=== PATIENT | female | born 1975 | race Caucasian/White ===

== ENCOUNTER → 2016-08-09 | Outpatient (CLI) | payer MEDICARE, MEDICAID ==
[~2016-08-09] MED LIST: ACET1TAB12 PO; ALPR1TAB2 PO; BACL10TA PO; CEFD300C3 PO; CEPH500C PO; CITALOPRAM; CLON1TAB2 PO; CLON1TAB27 PO; CPR500T PO; CRS350T PO; CYCL10TA9 PO; DCS100C PO; DIAZ10TA3 PO; DIAZ5TAB49; DIPH25CA79 PO; ESCI20TA2 PO; ESCT10T; FERR-57 PO; FLC150T PO; FLUO20CA25 PO; FLUO40CA PO; FRSM40T PO; FURO-125 PO; GABA600T2 PO; GBPN300C PO; HYDR-229 PO; HYDR-623 PO; HYDR-690; HYDR-690 PO; HYDR1CAP2 PO; HYDR1TAB8 PO; HYDR1TAB86 PO; IBP800T; IBP800T PO; IBUP-1780 PO; IBUP400T22 PO; METH4TAB PO; MORP15TA PO; NAPR-243 PO; ORPH100T PO; OXYC-12; OXYC-272 PO; OXYC-281 PO; PHEN-640 PO; PNV1CAPS13 PO; POTA10CA43 PO; PRED10TA22 PO; PROM25TA14 PO; RT-ALBUINH IH; SULF1TAB35 PO; TPR100T PO; TRIA1CAP4 PO; TRM50T PO; VENL75TA6 PO; [UNRECOGNIZED DRUG - OTHER]; [UNRECOGNIZED DRUG - OTHER] PO
[2016-08-09 13:20] LABS: BASOPHILS % (AUTO) 0 % (0-10); EOSINOPHILS # (AUTO) 0.2 10^3/uL (0.0-0.3); EOSINOPHILS % (AUTO) 3 % (0-10); LYMPHOCYTES # (AUTO) 1.8 X 10^3 (1.0-4.0); LYMPHOCYTES % (AUTO) 33 % (12-44); MEAN CORPUSCULAR HEMOGLOBIN 32 PG (25-34); MEAN CORPUSCULAR HGB CONC 32 G/DL (32-36); MEAN CORPUSCULAR VOLUME 101 FL (80-99); MEAN PLATELET VOLUME 9.7 FL (7.4-10.4); MONOCYTES # (AUTO) 0.3 X 10^3 (0.0-1.0); MONOCYTES % (AUTO) 5 % (0-12); NEUTROPHILS # (AUTO) 3.2 X 10^3 (1.8-7.8); NEUTROPHILS % (AUTO) 59 % (42-75); PLATELET COUNT 227 10^3/uL (130-400); RED BLOOD COUNT 3.67 10^6/uL (4.35-5.85); RED CELL DISTRIBUTION WIDTH 13.6 % (10.0-14.5); WHITE BLOOD COUNT 5.5 10^3/uL (4.3-11.0)
[2016-08-09 13:43] LABS: ALANINE AMINOTRANSFERASE 18 U/L (0-55); ALBUMIN 3.8 G/DL (3.2-4.5); ANION GAP 5 MMOL/L (5-14); ASPARTATE AMINO TRANSFERASE 21 U/L (5-34); BILIRUBIN,TOTAL 0.2 MG/DL (0.1-1.0); BLOOD UREA NITROGEN 14 MG/DL (7-18); BUN/CREATININE RATIO 17; CALCIUM 8.7 MG/DL (8.5-10.1); CARBON DIOXIDE 22 MMOL/L (21-32); CHLORIDE 111 MMOL/L (98-107); CREATININE SERUM 0.83 MG/DL (0.60-1.30); GFR ESTIMATED > 60; GLUCOSE 86 MG/DL (70-105); POTASSIUM 4.2 MMOL/L (3.6-5.0); SODIUM 138 MMOL/L (135-145); TOTAL PROTEIN 7.3 G/DL (6.4-8.2)
[2016-08-09 14:04] LABS: THYROID STIMULATING HORMONE 0.96 UIU/ML (0.35-4.94)
== END ==
LOC: LAB 12:50
PROVIDERS: ATTEND Obstetrics & Gynecology
DX: R60.0 Localized edema (principal); E55.9 Vitamin D deficiency, unspecified; F41.1 Generalized anxiety disorder
CPT/HCPCS: 36415; 80053; 84439; 84443; 85025

== ENCOUNTER 2016-09-26 21:39 | Emergency (ER) | payer MEDICARE, MEDICAID ==
[~2016-09-26] VITALS: Ht 167.6 cm; Wt 72.6 kg
[2016-09-26] MEDS ORDERED: RX-ALBUTEROL INHALER (PROAIR) 8 GM IH STA (22:13)
[2016-09-26] MEDS ORDERED: predniSONE 20 MG TAB PO ONE (22:15)
[2016-09-26] MEDS ORDERED: AZITHROMYCIN 250 MG TAB (ZITHROMAX) PO SCH (22:15)
--- NOTE | 2016-09-26 22:16 | ED Cough/URI ---
General Chief Complaint: Cough/Cold/Flu Symptoms Stated Complaint: TROUBLE BREATHING Source: patient Exam Limitations: no limitations History of Present Illness Time seen by provider: 22:16 Initial Comments To ER with a one-week history of nasal congestion and rhinorrhea, pressure behind her eyes, productive cough worse at night. Chills. Timing/Duration: week Severity/Quality: productive cough Associated Symptoms: chest pain/soreness, cough Allergies and Home Medications Allergies Coded Allergies: ampicillin (Unverified Allergy, Mild, 07/25/08) Home Medications Albuterol Sulfate 6.7 Gm Hfa.aer.ad, 6.7 GM IH Q4H PRN for COUGH, #1 Ref 0 Prescribed by: ANDREINA ROSS on 02/01/162153 Azithromycin 250 Mg Tablet, 250 MG PO DAILY, #4 Prescribed by: JOSEPH FERNANDES on 09/26/16 2224 Cefdinir 300 Mg Capsule, 300 MG PO BID, #14 Ref 0 Prescribed by: ANDREINA ROSS on 02/01/162153 Diazepam 10 Mg Tablet, 10 MG PO QID PRN for MUSCLE SPASMS, (Reported) Diphenhydramine HCl 25 Mg Capsule, 25 MG PO Q4H PRN for INSOMNIA, #10 Prescribed by: JOSEPH FERNANDES on 08/13/15 1646 Gabapentin 600 Mg Tablet, 600 MG PO DAILY, (Reported) Ibuprofen 800 Mg Tablet, 800 MG PO Q8H PRN for PAIN, (Reported) Oxycodone Hcl/Acetaminophen 1 Tab Tablet, 10 MG PO TID, (Reported) Prednisone 10 Mg Tab.ds.pk, 10 MG PO UD, #1 Ref 0 Prescribed by: ANDREINA ROSS on 02/01/162153 Prednisone 20 Mg Tab, 40 MG PO DAILY, #6 Prescribed by: JOSEPH FERNANDES on 09/26/16 2224 Promethazine HCl 25 Mg Tablet, 25 MG PO Q6H PRN for NAUSEA/VOMITING, (Reported) Topiramate 100 Mg Tab, 100 MG PO BID, (Reported) Tramadol HCl 50 Mg Tablet, #120 (Reported) Constitutional: see HPI, chills EENTM: nose congestion, see HPI Respiratory: see HPI, cough Cardiovascular: no symptoms reported Genitourinary: no symptoms reported Musculoskeletal: no symptoms reported Skin: no symptoms reported Psychiatric/Neurological: No Symptoms Reported Past Pufsbvt-Kgxvld-Zvmpsu Hx Patient Social History Former Smoker/When Quit: Aug 23, 2011 Recent Foreign Travel: No Contact w/Someone Who Travel: No Recent Hopitalizations: No (childbirth) Seasonal Allergies Seasonal Allergies: No Surgeries HX Surgeries: Yes (diag lap, c/s x2, wisdom teeth extraction) Surgeries: Abdominal, Appendectomy, Section, Hysterectomy Respiratory Hx Respiratory Disorders: No Cardiovascular Hx Cardiac Disorders: No Neurological Hx Neurological Disorders: Yes ("SEIZURES" X 2--TX FOR LEXAPRO, CLONAZEPAM AND TOPAMAX AT VARIOUS TIMES) Neurological Disorders: Seizure Disorder Reproductive System Hx Reproductive Disorders: Yes (CHRONIC PELVIC PAIN) Female Reproductive Disorders: Endometriosis 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 Genitourinary Hx Genitourinary Disorders: Yes Genitourinary Disorders: Bladder Infection Gastrointestinal Hx Gastrointestinal Disorders: No Musculoskeletal Hx Musculoskeletal Disorders: Yes Musculoskeletal Disorders: Degenerate Disk Disease, Arthritis, Back Injury, Chronic Back Pain Endocrine Hx Endocrine Disorders: No HEENT HX ENT Disorders: Yes (CHRONIC DENTAL COMPLAINTS) Cancer Hx Cancer: No Psychosocial Hx Psychiatric Problems: Yes (EXTENSIVE PSYCH ISSUES) Behavioral Health Disorders: Anxiety Integumentary HX Skin/Integumentary Disorder: No Blood Transfusions Hx Blood Disorders: No Physical Exam Vital Signs Vital Sign - Last 12Hours 09/26/16 22:08 Temp 98.5 Pulse 96 Resp 18 B/P (MAP) 139/87 Pulse Ox 96 O2 Delivery Room Air Capillary Refill : General Appearance: WD/WN, no apparent distress, other (lethargic and sedated appearing) HEENT: PERRL/EOMI, normal ENT inspection Neck: non-tender, full range of motion Respiratory: normal breath sounds, no respiratory distress, no accessory muscle use Cardiovascular: regular rate, rhythm, no murmur Gastrointestinal: normal bowel sounds, non tender, soft Neurologic/Psychiatric: alert, normal mood/affect, oriented x 3 Skin: normal color, warm/dry Progress/Results/Core Measures Results/Orders My Orders Orders - JOSEPH FERNANDES APRN Chest Pa/Lat (2 View) (09/26/16 22:10) Rx-Albuterol Inhaler (Rx-Proair) (09/26/16 22:13) Azithromycin Tablet (Zithromax Tablet) (09/26/16 22:15) Prednisone Tablet (Deltasone Tablet) (09/26/16 22:15) Vital Signs/I&O Vital Sign - Last 12Hours 09/26/16 09/26/16 22:08 22:27 Temp 98.5 98.5 Pulse 96 96 Resp 18 18 B/P (MAP) 139/87 Pulse Ox 96 96 O2 Delivery Room Air Departure Impression Impression: Primary Impression: Acute bronchitis Disposition: 01 HOME, SELF-CARE Condition: Stable Departure-Patient Inst. Decision time for Depature: 22:23 Referrals: NO,LOCAL PHYSICIAN (PCP/Family) Primary Care Physician Patient Instructions: Acute Bronchitis, Adult (DC) Scripts Prednisone (Prednisone) 20 Mg Tab 40 MG PO DAILY, #6 TAB Prov: JOSEPH FERNANDES APRN 09/26/16 Azithromycin (Azithromycin) 250 Mg Tablet 250 MG PO DAILY, #4 TAB Prov: JOSEPH FERNANDES APRN 09/26/16 JOSEPH FERNANDES APRN Sep 26, 2016 22:16
[2016-09-26] MEDS ORDERED: TRAM50TA2 (22:19)
[2016-09-26] MEDS ORDERED: PRD20T PO (22:24)
[2016-09-26] MEDS ORDERED: AZIT250T5 PO (22:24)
[2016-09-26 22:27] VITALS: BP 139/87
--- NOTE | 2016-09-27 07:24 | Diagnostic Imaging Report ---
INDICATION: Cough and congestion x1 week. TECHNIQUE: 2-view chest 10:34 PM. CORRELATION STUDY: 02/01/2016. FINDINGS: The heart size, mediastinal configuration and pulmonary vasculature are within normal limits. The lungs are clear with no consolidating infiltrate. There is no significant pleural effusion or pneumothorax. Mild degenerative changes of the thoracic spine. IMPRESSION: No radiographic evidence for acute abnormality of the chest. Dictated by: Dictated on workstation # [id number]
== END 2016-09-26 22:27 | disposition home or self-care (01) ==
LOC: EDUNIT# 21:39 → ER 21:40
DX: J20.9 Acute bronchitis, unspecified (principal); F41.9 Anxiety disorder, unspecified; G40.909 Epilepsy, unspecified, not intractable, without status epilepticus; M47.9 Spondylosis, unspecified; Z90.49 Acquired absence of other specified parts of digestive tract; Z87.891 Personal history of nicotine dependence; Z90.710 Acquired absence of both cervix and uterus; Z87.828 Personal history of other (healed) physical injury and trauma; Z98.818 Other dental procedure status
CPT/HCPCS: 71020; 99283

== ENCOUNTER 2016-10-24 17:05 | Emergency (ER) | payer MEDICARE, MEDICAID ==
[~2016-10-24] VITALS: Ht 170.2 cm; Wt 72.6 kg
[~2016-10-24 17:05] MED LIST changes: +AZIT250T5 PO; +PRD20T PO; +TRAM50TA2
--- OUTSIDE RECORDS SUMMARY | 2016-10-24 17:10 | XMS REPORT | Clinical Summary ---
Author Author [facility] Organization 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 If you do not see the information that you expected, contact Release of Information in the Health Information Management department at [phone] for further assistance in locating additional records.[facility] Allergies Not on File Current Medications Not on file Active Problems Not on file Social History Tobacco Use Types Packs/Day Years Used Date Never Assessed Sex Assigned at Date Recorded Not on file Last Filed Vital Signs Not on file Plan of Treatment Health Maintenance Due Date Last Done Comments PHYSICAL (COMPREHENSIVE) 1981 EXAM PERTUSSIS VACCINE 1985 TETANUS VACCINE 1991 CERVICAL CANCER SCREENING 01/22/2004 BREAST CANCER SCREENING 2014 INFLUENZA VACCINE 11/02/2016 Results Not on filefrom Last 3 Months
--- OUTSIDE RECORDS SUMMARY | 2016-10-24 17:12 | XMS REPORT ---
Author Author SAEID HAWLEY Organization [employer] Address Unknown Phone Unavailable Care Team Providers Care Portfolio Assistant Name Role Phone SAEID HAWLEY CP Unavailable Allergies, Adverse Reactions, Alerts Substance Reaction Event Type Ampicillin Info Not Available Drug Allergy Problems Problem Type Condition Code Onset Dates Condition Status Assessment Encounter for dental examination Z01.20 Active Medications Medication Code System Code Instructions Start Date End Date Status Dosage Clindamycin HCl [facility] [address]-21 300 MG Orally every 8 hrs Feb 23, 2015 Mar 02, 2015 1 capsule [place] [facility] [place] [address]-57 5-325 MG Orally every 6 hrs Feb 23, 2015 Feb 26, 2015 1 tablet as needed Procedures Procedure Coding System Code Date INTRAORL-PERIAPICAL 1 FILM 33933 CPT-4 D0220 Feb 23, 2015 LTD ORAL EVALUATION - PROBLEM FOCUS CPT-4 D0140 Feb 23, 2015 Vital Signs Date/Time: Feb 23, 2015 Blood Pressure Diastolic 63 mmHg Blood Pressure Systolic 101 mmHg Results No Known Results Summary Purpose [employer] Submission
--- OUTSIDE RECORDS SUMMARY | 2016-10-24 17:12 | XMS REPORT ---
Author Author SAEID HAWLEY Organization [employer] Address Unknown Phone Unavailable Care Team Providers Care Casino Duty Manager Name Role Phone SAEID HAWLEY CP Unavailable Allergies No Known Allergies Problems Problem Type Condition Code Onset Dates Condition Status Assessment Pulpitis K04.0 Active Assessment Retained dental root K08.3 Active Assessment Dental examination Z01.20 Active Medications Medication Code System Code Instructions Start Date End Date Status Dosage Valium MDC [address]-78 5 MG Orally Twice a day 1 [place] [address]-23 5-325 MG Orally every 6 hrs Mar 10, 2015 1 [place] [address]-97 150 MG Orally by one time Mar 10, 2015 1 tablet Procedures Procedure Coding System Code Date INTRAORL-PERIAPICAL 1 FILM 68379 CPT-4 D0220 Mar 10, 2015 INTRAORL-PERIAPICAL EA ADD FILM CPT-4 D0230 Mar 10, 2015 LTD ORAL EVALUATION - PROBLEM FOCUS CPT-4 D0140 Mar 10, 2015 SURG REMOVAL ERUPTED TOOTH CPT-4 D7210 Mar 10, 2015 SURG REMOVAL ERUPTED TOOTH CPT-4 D7210 Mar 10, 2015 Vital Signs Date/Time: Mar 10, 2015 Blood Pressure Diastolic 58 mmHg Blood Pressure Systolic 96 mmHg Results No Known Results Summary Purpose [employer] Submission
--- NOTE | 2016-10-24 18:40 | Diagnostic Imaging Report ---
INDICATION: Chest congestion and sore throat for a week. EXAMINATION: Two-view chest, 10/24/2016. COMPARISON: 09/26/2016. FINDINGS: The cardiomediastinal silhouette is unremarkable. The pulmonary vasculature is within normal limits. The lungs and pleural spaces are clear. IMPRESSION: No evidence of an acute cardiopulmonary process. Dictated by: Dictated on workstation # [id number]
[2016-10-24 18:50] LABS: BASOPHILS % (AUTO) 0 % (0-10); EOSINOPHILS # (AUTO) 0.2 10^3/uL (0.0-0.3); EOSINOPHILS % (AUTO) 3 % (0-10); LYMPHOCYTES # (AUTO) 2.3 X 10^3 (1.0-4.0); LYMPHOCYTES % (AUTO) 40 % (12-44); MEAN CORPUSCULAR HEMOGLOBIN 34 PG (25-34); MEAN CORPUSCULAR HGB CONC 33 G/DL (32-36); MEAN CORPUSCULAR VOLUME 104 FL (80-99); MEAN PLATELET VOLUME 9.7 FL (7.4-10.4); MONOCYTES # (AUTO) 0.4 X 10^3 (0.0-1.0); MONOCYTES % (AUTO) 6 % (0-12); NEUTROPHILS # (AUTO) 2.9 X 10^3 (1.8-7.8); NEUTROPHILS % (AUTO) 51 % (42-75); PLATELET COUNT 209 10^3/uL (130-400); RED BLOOD COUNT 3.64 10^6/uL (4.35-5.85); RED CELL DISTRIBUTION WIDTH 13.7 % (10.0-14.5); WHITE BLOOD COUNT 5.6 10^3/uL (4.3-11.0)
[2016-10-24 19:05] LABS: ALANINE AMINOTRANSFERASE 19 U/L (0-55); ALBUMIN 3.9 GM/DL (3.2-4.5); ANION GAP 10 MMOL/L (5-14); ASPARTATE AMINO TRANSFERASE 22 U/L (5-34); BILIRUBIN,TOTAL 0.2 MG/DL (0.1-1.0); BLOOD UREA NITROGEN 14 MG/DL (7-18); BUN/CREATININE RATIO 14; CALCIUM 8.7 MG/DL (8.5-10.1); CARBON DIOXIDE 25 MMOL/L (21-32); CHLORIDE 103 MMOL/L (98-107); GFR ESTIMATED > 60; GLUCOSE 90 MG/DL (70-105); POTASSIUM 3.3 MMOL/L (3.6-5.0); SODIUM 138 MMOL/L (135-145); TOTAL PROTEIN 7.1 GM/DL (6.4-8.2)
--- NOTE | 2016-10-24 19:35 | ED General ---
General Chief Complaint: Cough/Cold/Flu Symptoms Stated Complaint: CHEST CONGESTION Nursing Triage Note: pt reports chest congestion and bilateral leg swelling. Nursing Sepsis Screen: No Definite Risk Source of Information: Patient Exam Limitations: No Limitations Allergies and Home Medications Allergies Coded Allergies: ampicillin (Unverified Allergy, Mild, 07/25/08) Home Medications Albuterol Sulfate 6.7 Gm Hfa.aer.ad, 6.7 GM IH Q4H PRN for COUGH, #1 Ref 0 Prescribed by: ANDREINA ROSS on 02/01/162153 Azithromycin 250 Mg Tablet, 250 MG PO DAILY, #4 Prescribed by: JOSEPH FERNANDES on 09/26/164 Cefdinir 300 Mg Capsule, 300 MG PO BID, #14 Ref 0 Prescribed by: ANDREINA ROSS on 02/01/162153 Diazepam 10 Mg Tablet, 10 MG PO QID PRN for MUSCLE SPASMS, (Reported) Diphenhydramine HCl 25 Mg Capsule, 25 MG PO Q4H PRN for INSOMNIA, #10 Prescribed by: JOSEPH FERNANDES on 08/13/15 1646 Gabapentin 600 Mg Tablet, 600 MG PO DAILY, (Reported) Ibuprofen 800 Mg Tablet, 800 MG PO Q8H PRN for PAIN, (Reported) Oxycodone Hcl/Acetaminophen 1 Tab Tablet, 10 MG PO TID, (Reported) Prednisone 10 Mg Tab.ds.pk, 10 MG PO UD, #1 Ref 0 Prescribed by: ANDREINA ROSS on 02/01/162153 Prednisone 20 Mg Tab, 40 MG PO DAILY, #6 Prescribed by: JOSEPH FERNANDES on 09/26/164 Promethazine HCl 25 Mg Tablet, 25 MG PO Q6H PRN for NAUSEA/VOMITING, (Reported) Topiramate 100 Mg Tab, 100 MG PO BID, (Reported) Tramadol HCl 50 Mg Tablet, #120 (Reported) Past Zusfqax-Cutzjc-Ugheot Hx Patient Social History Alcohol Use: Denies Use Recreational Drug Use: No Smoking Status: Former Smoker Type Used: Cigarettes Former Smoker, Quit: Jun 05, 2016 Recent Foreign Travel: No Contact w/Someone Who Travel: No Recent Infectious Disease Expo: No Recent Hopitalizations: No Physical Abuse: No Sexual Abuse: No Mistreated: No Fear: No Seasonal Allergies Seasonal Allergies: No Surgeries History of Surgeries: Yes (diag lap, c/s x2, wisdom teeth extraction) Surgeries: Abdominal, Appendectomy, Section, Hysterectomy Respiratory History of Respiratory Disorde: No Cardiovascular History of Cardiac Disorders: No Neurological History of Neurological Disord: Yes ("SEIZURES" X 2--TX FOR LEXAPRO, CLONAZEPAM AND TOPAMAX AT VARIOUS TIMES) Neurological Disorders: Seizure Disorder Reproductive System Hx Reproductive Disorders: Yes (CHRONIC PELVIC PAIN) Female Reproductive Disorders: Endometriosis 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 Genitourinary History of Genitourinary Disor: Yes Genitourinary Disorders: Bladder Infection Gastrointestinal History of Gastrointestinal Di: No Musculoskeletal History of Musculoskeletal Dis: Yes Musculoskeletal Disorders: Degenerate Disk Disease, Arthritis, Back Injury, Chronic Back Pain Endocrine History of Endocrine Disorders: No HEENT History of HEENT Disorders: No Cancer History of Cancer: No Psychosocial History of Psychiatric Problem: Yes (EXTENSIVE PSYCH ISSUES) Behavioral Health Disorders: Anxiety Suicide Risk Score: 0 Integumentary History of Skin or Integumenta: No Blood Transfusions History of Blood Disorders: No Physical Exam Vital Signs Vital Sign - Last 12Hours 10/24/16 17:22 Temp 97.4 Pulse 88 Resp 18 B/P (MAP) 122/68 Pulse Ox 100 O2 Delivery Room Air Capillary Refill : Less Than 3 Seconds Progress/Results/Core Measures Results/Orders Lab Results Laboratory Tests Test 10/24/16 18:41 Range/Units White Blood Count 5.6 4.3-11.0 10^3/uL Red Blood Count 3.64 L 4.35-5.85 10^6/uL Hemoglobin 12.4 11.5-16.0 G/DL Hematocrit 38 35-52 % Mean Corpuscular Volume 104 H 80-99 FL Mean Corpuscular Hemoglobin 34 25-34 PG Mean Corpuscular Hemoglobin Concent 33 32-36 G/DL Red Cell Distribution Width 13.7 10.0-14.5 % Platelet Count 209 130-400 10^3/uL Mean Platelet Volume 9.7 7.4-10.4 FL Neutrophils (%) (Auto) 51 42-75 % Lymphocytes (%) (Auto) 40 12-44 % Monocytes (%) (Auto) 6 0-12 % Eosinophils (%) (Auto) 3 0-10 % Basophils (%) (Auto) 0 0-10 % Neutrophils # (Auto) 2.9 1.8-7.8 X 10^3 Lymphocytes # (Auto) 2.3 1.0-4.0 X 10^3 Monocytes # (Auto) 0.4 0.0-1.0 X 10^3 Eosinophils # (Auto) 0.2 0.0-0.3 10^3/uL Basophils # (Auto) 0.0 0.0-0.1 10^3/uL Sodium Level 138 135-145 MMOL/L Potassium Level 3.3 L 3.6-5.0 MMOL/L Chloride Level 103 98-107 MMOL/L Carbon Dioxide Level 25 21-32 MMOL/L Anion Gap 10 5-14 MMOL/L Blood Urea Nitrogen 14 7-18 MG/DL Creatinine 1.00 0.60-1.30 MG/DL Estimat Glomerular Filtration Rate > 60 BUN/Creatinine Ratio 14 Glucose Level 90 70-105 MG/DL Calcium Level 8.7 8.5-10.1 MG/DL Total Bilirubin 0.2 0.1-1.0 MG/DL Aspartate Amino Transf (AST/SGOT) 22 5-34 U/L Alanine Aminotransferase (ALT/SGPT) 19 0-55 U/L Alkaline Phosphatase 56 40-136 U/L B-Type Natriuretic Peptide 34.1 <100.0 PG/ML Total Protein 7.1 6.4-8.2 GM/DL Albumin 3.9 3.2-4.5 GM/DL My Orders Orders - EDILBERTO CRUM MD BNP (10/24/16 18:15) Cbc With Automated Diff (10/24/16 18:15) Comprehensive Metabolic Panel (10/24/16 18:15) Saline Lock/Iv-Start (10/24/16 18:15) Chest Pa/Lat (2 View) (10/24/16 18:15) Vital Signs/I&O Vital Sign - Last 12Hours 10/24/16 10/24/16 17:22 17:22 Temp 97.4 Pulse 88 Resp 18 B/P (MAP) 122/68 Pulse Ox 100 O2 Delivery Room Air Blood Pressure Mean: 86 Departure Impression Impression: Primary Impression: Lower extremity edema Additional Impressions: Dyspnea Qualified Codes: R06.00 - Dyspnea, unspecified Dry cough Disposition: HOME, SELF-CARE Condition: Stable Departure-Patient Inst. Referrals: NO,LOCAL PHYSICIAN (PCP/Family) Primary Care Physician Patient Instructions: Dependent Edema (DC) Add. Discharge Instructions: Establish with a primary care provider as soon as possible. For your swelling, avoid excessive salt intake and extended periods of time on your feet. Elevate your feet at rest. Consider using compression stockings during the day. You may restart Lasix. Take a dose when you first wake up and another dose about 8 hours later. Be sure to take a potassium dose every day that you take Lasix. Your swelling should be managed by a primary care provider , so please establish with a primary care provider soon as possible. Your shortness of breath may be related to lingering bronchospasm and airway irritation remaining from your bronchitis. Use the Advair Diskus as prescribed until symptoms resolve. Rinse your mouth with water after use to avoid developing thrush. Use your pro-air inhaler for acute episodes of shortness of breath. For your nighttime cough, try using an oydk-nzw-mrsotpw cough medication containing dextromethorphan (DM). Return to care if symptoms worsen. All discharge instructions reviewed with patient and/or family. Voiced understanding. Scripts Potassium Chloride (Potassium Chloride) 10 Meq Tablet.er 10 MEQ PO DAILY, #10 TAB Prov: EDILBERTO CRUM MD 10/24/16 Furosemide (Lasix) 20 Mg Tablet 20 MG PO BID, #20 TAB Prov: EDILBERTO CRUM MD 10/24/16 Albuterol Sulfate (PROAIR HFA) 1 Puff Puff 2 PUFF IH Q4H Y for SHORTNESS OF BREATH, #1 PUFF 1 PUFF = 90 MCG Prov: EDILBERTO CRUM MD 10/24/16 Fluticasone/Salmeterol (Advair 100-50 Diskus) 1 Each Blst.w.dev 1 EACH IH BID, #1 EA Prov: EDILBERTO CRUM MD 10/24/16 EDILBERTO CRUM MD Oct 24, 2016 19:35
[2016-10-24] MEDS ORDERED: FLUT1DIS28 IH (19:42)
[2016-10-24] MEDS ORDERED: POTA10TA10 PO (19:42)
[2016-10-24] MEDS ORDERED: FURO-125 PO (19:42)
[2016-10-24] MEDS ORDERED: RT-ALBUINH IH (19:42)
[2016-10-24 20:02] VITALS: BP 120/70
== END 2016-10-24 20:01 | disposition home or self-care (01) ==
LOC: EDUNIT# 17:05 → ER 17:06
DX: R06.00 Dyspnea, unspecified (principal); R05 Cough; R60.0 Localized edema; F41.9 Anxiety disorder, unspecified; M47.9 Spondylosis, unspecified; G40.909 Epilepsy, unspecified, not intractable, without status epilepticus; Z87.59 Personal history of other complications of pregnancy, childbirth and the puerperium; Z90.49 Acquired absence of other specified parts of digestive tract; Z90.710 Acquired absence of both cervix and uterus; Z87.891 Personal history of nicotine dependence; Z87.828 Personal history of other (healed) physical injury and trauma
CPT/HCPCS: 36415; 71020; 80053; 83880; 85025

== ENCOUNTER 2016-11-24 20:23 | Emergency (ER) | payer MEDICARE, MEDICAID ==
[~2016-11-24] VITALS: Ht 170.2 cm; Wt 72.6 kg
[~2016-11-24 20:23] MED LIST changes: +AZIT250T12 PO; -AZIT250T5 PO; +FLUT1DIS28 IH; +POTA10TA10 PO
--- OUTSIDE RECORDS SUMMARY | 2016-11-24 20:29 | XMS REPORT | Clinical Summary ---
Author Author [facility] Organization [facility] Address Unknown Phone Unavailable Care Team Providers Care Senior Supplier Quality Engineer Name Role Phone PCP Unavailable Source Comments Some departments are not documenting in the electronic medical record. If you do not see the information that you expected, contact Release of Information in the Health Information Management department at [phone] for further assistance in locating additional records.[facility] Allergies Not on File Current Medications [...] 01/22/2004 BREAST CANCER SCREENING 2014 INFLUENZA VACCINE 12/02/2016 Results Not on filefrom Last 3 Months
[2016-11-24 22:49] LABS: BILIRUBIN,URINE NEGATIVE (NEGATIVE); KETONES,URINE NEGATIVE (NEGATIVE); LEUKOCYTE ESTERASE ,URINE NEGATIVE (NEGATIVE); NITRITE,URINE NEGATIVE (NEGATIVE); PH,URINE 5 (5-9); PROTEIN,URINE NEGATIVE (NEGATIVE); UROBILINOGEN,URINE NORMAL (NORMAL)
[2016-11-24 23:02] LABS: BASOPHILS % (AUTO) 0 % (0-10); EOSINOPHILS # (AUTO) 0.3 10^3/uL (0.0-0.3); EOSINOPHILS % (AUTO) 5 % (0-10); LYMPHOCYTES # (AUTO) 2.1 X 10^3 (1.0-4.0); LYMPHOCYTES % (AUTO) 34 % (12-44); MEAN CORPUSCULAR HEMOGLOBIN 34 PG (25-34); MEAN CORPUSCULAR HGB CONC 33 G/DL (32-36); MEAN CORPUSCULAR VOLUME 103 FL (80-99); MEAN PLATELET VOLUME 9.4 FL (7.4-10.4); MONOCYTES # (AUTO) 0.5 X 10^3 (0.0-1.0); MONOCYTES % (AUTO) 8 % (0-12); NEUTROPHILS # (AUTO) 3.3 X 10^3 (1.8-7.8); NEUTROPHILS % (AUTO) 54 % (42-75); PLATELET COUNT 250 10^3/uL (130-400); RED BLOOD COUNT 3.56 10^6/uL (4.35-5.85); WHITE BLOOD COUNT 6.2 10^3/uL (4.3-11.0)
[2016-11-24 23:22] LABS: ALANINE AMINOTRANSFERASE 11 U/L (0-55); ALCOHOL < 10 MG/DL (<10); ANION GAP 10 MMOL/L (5-14); ASPARTATE AMINO TRANSFERASE 15 U/L (5-34); BILIRUBIN,TOTAL 0.1 MG/DL (0.1-1.0); BLOOD UREA NITROGEN 14 MG/DL (7-18); BUN/CREATININE RATIO 15; CALCIUM 8.6 MG/DL (8.5-10.1); CARBON DIOXIDE 27 MMOL/L (21-32); CHLORIDE 100 MMOL/L (98-107); CREATININE SERUM 0.93 MG/DL (0.60-1.30); GFR ESTIMATED > 60; GLUCOSE 112 MG/DL (70-105); SODIUM 137 MMOL/L (135-145); TOTAL PROTEIN 7.5 GM/DL (6.4-8.2)
[2016-11-24] MEDS ORDERED: FURO-124 PO (23:53)
[2016-11-24] MEDS ORDERED: POTA10TA36 PO (23:53)
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
[2016-11-25] MEDS ORDERED: FUROSEMIDE 40 MG (LASIX) TAB PO ONE
[2016-11-25] MEDS ORDERED: KCL 10 MEQ TAB (MICRO K) PO ONE
[2016-11-25 00:10] VITALS: BP 112/71
== END 2016-11-25 00:08 | disposition home or self-care (01) ==
LOC: EDUNIT# 20:23 → ER 20:24
DX: R60.0 Localized edema (principal); E87.6 Hypokalemia; F41.9 Anxiety disorder, unspecified; M47.9 Spondylosis, unspecified; G40.909 Epilepsy, unspecified, not intractable, without status epilepticus; Z90.710 Acquired absence of both cervix and uterus; Z90.49 Acquired absence of other specified parts of digestive tract; Z87.59 Personal history of other complications of pregnancy, childbirth and the puerperium; Z87.891 Personal history of nicotine dependence
CPT/HCPCS: 36415; 80053; 80306; 80320; 81000; 83735; 83880; 84443; 85025; 99283

== ENCOUNTER 2017-03-10 20:45 | Emergency (ER) | payer MEDICARE, MEDICAID ==
[~2017-03-10] VITALS: Ht 167.6 cm; Wt 72.6 kg
[~2017-03-10 20:45] MED LIST changes: +FURO-124 PO; +POTA10TA36 PO
--- OUTSIDE RECORDS SUMMARY | 2017-03-10 20:51 | XMS REPORT | Clinical Summary ---
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 If you do not see the information that you expected, contact Release of Information in the Health Information Management department at [phone] for further assistance in locating additional records.[facility] Allergies Not on File Current Medications Not [...] 01/22/2004 BREAST CANCER SCREENING 2014 INFLUENZA VACCINE 10/02/2016 Results Not on filefrom Last 3 Months
--- OUTSIDE RECORDS SUMMARY | 2017-03-10 20:53 | XMS REPORT | Continuity of Care Document ---
Author Author [facility] Address Unknown Phone Unavailable Allergies Active Description Code Type Severity Reaction Onset Reported/Identified Relationship to Patient Clinical Status Yes ampicillin Drug Allergy N/A N/A 12/27/2010 Yes ampicillin [id number] Drug Allergy Mild N/A 11/24/2016 Medications There is no data. Problems Date Dx Coded Attending Type Code Diagnosis Diagnosed By 02/17/2008 724.5 BACKACHE UNSPECIFIED 02/17/2008 724.5 BACKACHE UNSPECIFIED 02/17/2008 NATHANIEL GRACE MD 724.5 BACKACHE UNSPECIFIED 03/05/2008 724.2 lower back pain 03/05/2008 847.9 SPRAIN/STRAIN BACK UNSPEC 03/05/2008 724.2 lower back pain 03/05/2008 847.9 SPRAIN/STRAIN BACK UNSPEC 03/05/2008 NATHANIEL GRACE MD 724.2 lower back pain 03/05/2008 NATHANIEL GRACE MD 847.9 SPRAIN/STRAIN BACK UNSPEC 09/09/2009 Ot 729.81 09/09/2009 Ot 782.3 01/23/2010 Ot 729.81 01/23/2010 Ot 782.3 04/07/2010 Ot 276.8 04/07/2010 Ot 280.9 04/07/2010 Ot 285.1 04/07/2010 Ot 304.91 04/07/2010 Ot 338.29 04/07/2010 Ot 595.1 04/07/2010 Ot 614.6 04/07/2010 Ot 617.0 04/07/2010 Ot 625.9 04/07/2010 Ot 998.13 04/07/2010 Ot E849.7 04/07/2010 Ot E878.6 04/07/2010 Ot V64.41 04/09/2010 Ot 338.18 04/09/2010 Ot 998.11 04/13/2010 Ot 263.9 04/13/2010 Ot 280.9 04/13/2010 Ot 285.1 04/13/2010 Ot 998.13 04/13/2010 Ot 998.32 04/13/2010 Ot E849.0 04/13/2010 Ot E878.6 06/10/2010 Ot 724.1 06/28/2010 Ot 300.00 06/28/2010 Ot 786.05 10/14/2010 Ot 599.0 URIN TRACT INFECTION NOS 10/14/2010 Ot 789.00 ABDOMINAL PAIN, UNSPECIFIED SITE 11/03/2010 Ot 525.9 DENTAL DISORDER NOS 12/27/2010 300.00 anxiety 12/27/2010 338.4 CHRONIC PAIN SYNDROME 12/27/2010 300.00 anxiety 12/27/2010 338.4 CHRONIC PAIN SYNDROME 12/27/2010 NATHANIEL GRACE MD 300.00 anxiety 12/27/2010 NATHANIEL GRACE MD 338.4 CHRONIC PAIN SYNDROME 04/18/2011 Ot 709.2 SCAR FIBROSIS OF SKIN 05/17/2011 Ot 729.5 PAIN IN LIMB 05/17/2011 Ot 729.81 SWELLING OF LIMB 05/18/2011 Ot 682.6 CELLULITIS OF LEG 05/18/2011 Ot 729.81 SWELLING OF LIMB 05/18/2011 Ot 782.3 EDEMA 08/02/2011 Ot 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 WITHOUT AGORAPHOBIA 10/16/2013 PILI BERTRAND DO Ot 305.90 DRUG ABUSE NEC-UNSPEC 10/16/2013 PILI BERTRAND DO Ot 338.29 OTHER CHRONIC PAIN 10/16/2013 PILI BERTRAND DO Ot 724.5 BACKACHE NOS 12/28/2014 Ot 617.9 12/28/2014 Ot 791.9 12/28/2014 Ot V72.63 12/28/2014 Ot V74.8 12/28/2014 Ot 709.2 12/28/2014 Ot V72.84 12/28/2014 Ot 722.10 12/28/2014 Ot 722.52 01/19/2015 CHOLO LALA MD Ot M53.3 02/04/2015 CHOLO LALA MD Ot M53.3 05/10/2015 MILLY CHAVEZ MD Ot R10.84 05/10/2015 MILLY CHAVEZ MD Ot Z53.21 08/13/2015 FERNANDES, PETER J FRUIT HARVESTER MACHINE OPERATOR Ot N39.0 URINARY TRACT INFECTION, SITE NOT SPECIF 08/13/2015 JOSEPH FERNANDES FRUIT HARVESTER MACHINE OPERATOR Ot R60.0 LOCALIZED EDEMA 08/16/2015 JOSEPH FERNANDES FRUIT HARVESTER MACHINE OPERATOR Ot N39.0 URINARY TRACT INFECTION, SITE NOT SPECIF 08/16/2015 JOSEPH FERNANDES FRUIT HARVESTER MACHINE OPERATOR Ot R60.0 LOCALIZED EDEMA 09/04/2015 JERZY DOPILI Ot M54.5 LOW BACK PAIN 09/04/2015 JERZY PILI ARZOLA K Ot Z53.21 PROC/TRTMT NOT CRD OUT D/T PT LV BEF SEE 09/08/2015 JERZY PILI ARZOLA Ot M54.5 LOW BACK PAIN 09/08/2015 JERZY PILI ARZOLA K Ot Z53.21 PROC/TRTMT NOT CRD OUT D/T PT LV BEF SEE 12/23/2015 Ot 709.2 SCAR FIBROSIS OF SKIN 12/23/2015 Ot V72.84 EXAM PRE- OPERATIVE NOS 12/23/2015 Ot 722.10 LUMBAR DISC DISPLACEMENT 12/23/2015 Ot 722.52 LUMB/ LUMBOSAC DISC DEGEN 12/23/2015 SPIKE HAMPTON, CHOLO Bautista Ot M53.3 SACROCOCCYGEAL DISORDERS, NOT ELSEWHERE 12/23/2015 KATHY HAMPTON, MILLY Bautista Ot R10.84 GENERALIZED ABDOMINAL PAIN 12/23/2015 MILLY CHAVEZ MD Ot Z53.21 PROC/TRTMT NOT CRD OUT D/T PT LV BEF SEE 12/23/2015 ROB GONZALES MD A Ot R33.9 RETENTION OF URINE, UNSPECIFIED 12/23/2015 KAT GONZALES MDNT A Ot R39.11 HESITANCY OF MICTURITION 12/23/2015 KAT GONZALES MDNT A Ot R39.15 URGENCY OF URINATION 12/23/2015 KAT GONZALES MDNT A Ot Z79.899 OTHER RETIREMENT (CURRENT) DRUG THERAPY 12/26/2015 ROB GONZALES MD A Ot R33.9 RETENTION OF URINE, UNSPECIFIED 12/26/2015 KAT GONZALES MDNT A Ot R39.11 HESITANCY OF MICTURITION 12/26/2015 ROB GONZALES MD A Ot R39.15 URGENCY OF URINATION 12/26/2015 CHRISTIAN HAMPTON ROB A Ot Z79.899 OTHER RETIREMENT (CURRENT) DRUG THERAPY 12/28/2015 Ot 709.2 SCAR FIBROSIS OF SKIN 12/28/2015 Ot V72.84 EXAM PRE- OPERATIVE NOS 12/28/2015 Ot 722.10 LUMBAR DISC DISPLACEMENT 12/28/2015 Ot 722.52 LUMB/ LUMBOSAC DISC DEGEN 12/28/2015 SPIKE HAMPTON, CHOLO Bautista Ot M53.3 SACROCOCCYGEAL DISORDERS, NOT ELSEWHERE 12/28/2015 KATHY HAMPTON, MILLY Bautista Ot R10.84 GENERALIZED ABDOMINAL PAIN 12/28/2015 KATHY HAMPTON, MILLY Bautista Ot Z53.21 PROC/TRTMT NOT CRD OUT D/T PT LV BEF SEE 01/03/2016 Ot 338.18 OTHER ACUTE POSTOPERATIVE PAIN 01/03/2016 Ot 998.11 HEMOR COMPLIC A PROCEDURE 02/01/2016 CODY, ANDREINA MASS COMMUNICATIONS PROFESSOR Ot G40.909 EPILEPSY, UNSP, NOT INTRACTABLE, WITHOUT 02/01/2016 CODY, ANDREINA MASS COMMUNICATIONS PROFESSOR Ot H66.91 OTITIS MEDIA, UNSPECIFIED, RIGHT EAR 02/01/2016 CODY, ANDREINA MASS COMMUNICATIONS PROFESSOR Ot J20.9 ACUTE BRONCHITIS, UNSPECIFIED 02/01/2016 CODY, ANDREINA MASS COMMUNICATIONS PROFESSOR Ot R05 COUGH 02/01/2016 CODY, ANDREINA MASS COMMUNICATIONS PROFESSOR Ot Z79.899 OTHER RETIREMENT (CURRENT) DRUG THERAPY 02/02/2016 CODY, ANDREINA MASS COMMUNICATIONS PROFESSOR Ot G40.909 EPILEPSY, UNSP, NOT INTRACTABLE, WITHOUT 02/02/2016 CODY, ANDREINA MASS COMMUNICATIONS PROFESSOR Ot H66.91 OTITIS MEDIA, UNSPECIFIED, RIGHT EAR 02/02/2016 CODY, ANDREINA MASS COMMUNICATIONS PROFESSOR Ot J20.9 ACUTE BRONCHITIS, UNSPECIFIED 02/02/2016 CODY, ANDREINA MASS COMMUNICATIONS PROFESSOR Ot R05 COUGH 02/02/2016 CODY, ANDREINA MASS COMMUNICATIONS PROFESSOR Ot 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 02/03/2016 CODY, ANDREINA MASS COMMUNICATIONS PROFESSOR Ot G40.909 EPILEPSY, UNSP, NOT INTRACTABLE, WITHOUT 02/03/2016 CODY, ANDREINA MASS COMMUNICATIONS PROFESSOR Ot H66.91 OTITIS MEDIA, UNSPECIFIED, RIGHT EAR 02/03/2016 CODY, ANDREINA MASS COMMUNICATIONS PROFESSOR Ot J20.9 ACUTE BRONCHITIS, UNSPECIFIED 02/03/2016 CODY, ANDREINA MASS COMMUNICATIONS PROFESSOR Ot R05 COUGH 02/03/2016 CODY, ANDREINA MASS COMMUNICATIONS PROFESSOR Ot 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 03/04/2016 Ot 338.18 OTHER ACUTE POSTOPERATIVE PAIN 03/04/2016 Ot 998.11 HEMOR COMPLIC A PROCEDURE 08/10/2016 KINSEY DO, ALVARADO C Ot E55.9 VITAMIN D DEFICIENCY, UNSPECIFIED 08/10/2016 KINSEY DO, ALVARADO C Ot F41.1 GENERALIZED ANXIETY DISORDER 08/10/2016 KINSEY DO, ALVARADO C Ot R60.0 LOCALIZED EDEMA 08/30/2016 KINSEY DO, ALVARADO C Ot E55.9 VITAMIN D DEFICIENCY, UNSPECIFIED 08/30/2016 KINSEY DO, ALVARADO C Ot F41.1 GENERALIZED ANXIETY DISORDER 08/30/2016 KINSEY DO, ALVARADO C Ot R60.0 LOCALIZED EDEMA 09/05/2016 KINSEY DO, ALVARADO C Ot E55.9 VITAMIN D DEFICIENCY, UNSPECIFIED 09/05/2016 KINSEY DO, ALVARADO C Ot F41.1 GENERALIZED ANXIETY DISORDER 09/05/2016 KINSEY DO, ALVARADO C Ot R60.0 LOCALIZED EDEMA 09/26/2016 JOSEPH FERNANDES APRN Ot F41.9 ANXIETY DISORDER, UNSPECIFIED 09/26/2016 JOSEPH FERNANDES APRN Ot G40.909 EPILEPSY, UNSP, NOT INTRACTABLE, WITHOUT 09/26/2016 JOSEPH FERNANDES APRN Ot J20.9 ACUTE BRONCHITIS, UNSPECIFIED 09/26/2016 JOSEPH FERNANDES APRN Ot M47.9 SPONDYLOSIS, UNSPECIFIED 09/26/2016 JOSEPH FERNANDES APRN Ot R09.81 NASAL CONGESTION 09/26/2016 JOSEPH FERNANDES APRN Ot Z87.828 PERSONAL HISTORY OF OTH (HEALED) PHYSICA 09/26/2016 JOSEPH FERNANDES APRN Ot Z87.891 PERSONAL HISTORY OF NICOTINE DEPENDENCE 09/26/2016 JOSEPH FERNANDES APRN Ot Z90.49 ACQUIRED ABSENCE OF OTHER SPECIFIED PART 09/26/2016 JOSEPH FERNANEDS APRN Ot Z90.710 ACQUIRED ABSENCE OF BOTH CERVIX AND UTER 09/26/2016 JOSEPH FERNANDES APRN Ot Z98.818 OTHER DENTAL PROCEDURE STATUS 09/28/2016 JOSEPH FERNANDES APRN Ot F41.9 ANXIETY DISORDER, UNSPECIFIED 09/28/2016 JOSEPH FERNANDES APRN Ot G40.909 EPILEPSY, UNSP, NOT INTRACTABLE, WITHOUT 09/28/2016 JOSEPH FERNANDES APRN Ot J20.9 ACUTE BRONCHITIS, UNSPECIFIED 09/28/2016 JOSEPH FERNANDES APRN Ot M47.9 SPONDYLOSIS, UNSPECIFIED 09/28/2016 JOSEPH FERNANDES APRN Ot R09.81 NASAL CONGESTION 09/28/2016 JOSEPH FERNANDES APRN Ot Z87.828 PERSONAL HISTORY OF OTH (HEALED) PHYSICA 09/28/2016 JOSEPH FERNANDES APRN Ot Z87.891 PERSONAL HISTORY OF NICOTINE DEPENDENCE 09/28/2016 JOSEPH FERNANDES APRN Ot Z90.49 ACQUIRED ABSENCE OF OTHER SPECIFIED PART 09/28/2016 JOSEPH FERNANDES APRN Ot Z90.710 ACQUIRED ABSENCE OF BOTH CERVIX AND UTER 09/28/2016 JOSEPH FERNANDES APRN Ot Z98.818 OTHER DENTAL PROCEDURE STATUS 10/24/2016 EDILBERTO CRUM MD Ot F41.9 ANXIETY DISORDER, UNSPECIFIED 10/24/2016 EDILBERTO CRUM MD Ot G40.909 EPILEPSY, UNSP, NOT INTRACTABLE, WITHOUT 10/24/2016 EDILBERTO CRUM MD Ot M47.9 SPONDYLOSIS, UNSPECIFIED 10/24/2016 EDILBERTO CRUM MD Ot R05 COUGH 10/24/2016 EDILBERTO CRUM MD Ot R06.00 DYSPNEA, UNSPECIFIED 10/24/2016 EDILBERTO CRUM MD Ot R09.89 OTH SYMPTOMS AND SIGNS INVOLVING THE CIR 10/24/2016 EDILBERTO CRUM MD Ot R60.0 LOCALIZED EDEMA 10/24/2016 EDILBERTO CRUM MD Ot Z87.59 PERSONAL HISTORY OF COMP OF PREG, CHLDBR 10/24/2016 EDILBERTO CRUM MD Ot Z87.828 PERSONAL HISTORY OF OTH (HEALED) PHYSICA 10/24/2016 EDILBERTO CRUM MD Ot Z87.891 PERSONAL HISTORY OF NICOTINE DEPENDENCE 10/24/2016 EDILBERTO CRUM MD Ot Z90.49 ACQUIRED ABSENCE OF OTHER SPECIFIED PART 10/24/2016 EDILBERTO CRUM MD Ot Z90.710 ACQUIRED ABSENCE OF BOTH CERVIX AND UTER 10/26/2016 EDILBERTO CRUM MD Ot F41.9 ANXIETY DISORDER, UNSPECIFIED 10/26/2016 EDILBERTO CRUM MD Ot G40.909 EPILEPSY, UNSP, NOT INTRACTABLE, WITHOUT 10/26/2016 EDILBERTO CRUM MD, Ot M47.9 SPONDYLOSIS, UNSPECIFIED 10/26/2016 EDILBERTO CRUM MD Ot R05 COUGH 10/26/2016 EDILBERTO CRUM MD Ot R06.00 DYSPNEA, UNSPECIFIED 10/26/2016 EDILBERTO CRUM MD Ot R09.89 OTH SYMPTOMS AND SIGNS INVOLVING THE CIR 10/26/2016 EDILBERTO CRUM MD Ot R60.0 LOCALIZED EDEMA 10/26/2016 EDILBERTO CRUM MD Ot Z87.59 PERSONAL HISTORY OF COMP OF PREG, CHLDBR 10/26/2016 EDILBERTO CRUM MD Ot Z87.828 PERSONAL HISTORY OF OTH (HEALED) PHYSICA 10/26/2016 EDILBERTO CRUM MD Ot Z87.891 PERSONAL HISTORY OF NICOTINE DEPENDENCE 10/26/2016 EDILBERTO CRUM MD Ot Z90.49 ACQUIRED ABSENCE OF OTHER SPECIFIED PART 10/26/2016 EDILBERTO CRUM MD Ot Z90.710 ACQUIRED ABSENCE OF BOTH CERVIX AND UTER 11/25/2016 PILI BERTRAND DO Ot E87.6 HYPOKALEMIA 11/25/2016 PILI BERTRAND DO Ot F41.9 ANXIETY DISORDER, UNSPECIFIED 11/25/2016 PILI BERTRAND DO Ot G40.909 EPILEPSY, UNSP, NOT INTRACTABLE, WITHOUT 11/25/2016 PILI BERTRAND DO Ot M47.9 SPONDYLOSIS, UNSPECIFIED 11/25/2016 PILI BERTRAND DO Ot R60.0 LOCALIZED EDEMA 11/25/2016 PILI BERTRAND DO Ot Z87.59 PERSONAL HISTORY OF COMP OF PREG, CHLDBR 11/25/2016 IPLI BERTRAND DO Ot Z87.891 PERSONAL HISTORY OF NICOTINE DEPENDENCE 11/25/2016 PILI BERTRAND DO Ot Z90.49 ACQUIRED ABSENCE OF OTHER SPECIFIED PART 11/25/2016 PILI BERTRAND DO Ot Z90.710 ACQUIRED ABSENCE OF BOTH CERVIX AND UTER 02/01/2017 Ot 338.18 OTHER ACUTE POSTOPERATIVE PAIN 02/01/2017 Ot 998.11 HEMOR COMPLIC A PROCEDURE Procedures There is no data. Results Test Result Range Complete urinalysis with reflex to culture - 12/23/15 01:07 Urine color determination YELLOW NRG Urine clarity determination CLEAR NRG Urine pH measurement by test strip 6.5 5-9 Specific gravity of urine by test strip 1.010 1.016- 1.022 Urine protein assay by test strip, semi-quantitative NEGATIVE NEGATIVE Urine glucose detection by automated test strip NEGATIVE NEGATIVE Erythrocytes detection in urine sediment by light microscopy NEGATIVE NEGATIVE Urine ketones detection by automated test strip NEGATIVE NEGATIVE Urine nitrite detection by test strip NEGATIVE NEGATIVE Urine total bilirubin detection by test strip NEGATIVE NEGATIVE Urine urobilinogen measurement by automated test strip (mass/volume) NORMAL NORMAL Urine leukocyte esterase detection by dipstick NEGATIVE NEGATIVE Automated urine sediment erythrocyte count by microscopy (number/high power field) NONE NRG Automated urine sediment leukocyte count by microscopy (number/high power field ) NONE NRG Bacteria detection in urine sediment by light microscopy NEGATIVE NRG Squamous epithelial cells detection in urine sediment by light microscopy 0-2 NRG Crystals detection in urine sediment by light microscopy NONE NRG Casts detection in urine sediment by light microscopy NONE NRG Mucus detection in urine sediment by light microscopy SMALL NRG Complete urinalysis with reflex to culture NO NRG Complete blood count (CBC) with automated white blood cell (WBC) differential - 02/01/16 20:13 Blood leukocytes automated count (number/volume) 4.5 10*3/uL 4.3-11.0 Blood erythrocytes automated count (number/volume) 4.08 10*6/uL 4.35-5.85 Venous blood hemoglobin measurement (mass/volume) 13.5 g/dL 11.5-16.0 Blood hematocrit (volume fraction) 41 % 35-52 Automated erythrocyte mean corpuscular volume 100 [foz_us] 80-99 Automated erythrocyte mean corpuscular hemoglobin (mass per erythrocyte) 33 pg 25-34 Automated erythrocyte mean corpuscular hemoglobin concentration measurement ( mass/volume) 33 g/dL 32-36 Automated erythrocyte distribution width ratio 13.9 % 10.0-14.5 Automated blood platelet count (count/volume) 281 10*3/uL 130-400 Automated blood platelet mean volume measurement 9.6 [foz_us] 7.4-10.4 Automated blood neutrophils/100 leukocytes 48 % 42-75 Automated blood lymphocytes/100 leukocytes 42 % 12-44 Blood monocytes/100 leukocytes 8 % 0-12 Automated blood eosinophils/100 leukocytes 1 % 0-10 Automated blood basophils/100 leukocytes 0 % 0-10 Blood neutrophils automated count (number/volume) 2.2 10*3 1.8-7.8 Blood lymphocytes automated count (number/volume) 1.9 10*3 1.0-4.0 Blood monocytes automated count (number/volume) 0.4 10*3 0.0-1.0 Automated eosinophil count 0.1 10*3/uL 0.0-0.3 Automated blood basophil count (count/volume) 0.0 10*3/uL 0.0-0.1 Comprehensive metabolic panel - 02/01/16 20:13 Serum or plasma sodium measurement (moles/volume) 137 mmol/L 135-145 Serum or plasma potassium measurement (moles/volume) 3.2 mmol/L 3.6-5.0 Serum or plasma chloride measurement (moles/volume) 111 mmol/L 98-107 Carbon dioxide 17 mmol/L 21-32 Serum or plasma anion gap determination (moles/volume) 9 mmol/L 5-14 Serum or plasma urea nitrogen measurement (mass/volume) 15 mg/dL 7-18 Serum or plasma creatinine measurement (mass/volume) 0.83 mg/dL 0.60-1.30 Serum or plasma urea nitrogen/creatinine mass ratio 18 NRG Serum or plasma creatinine measurement with calculation of estimated glomerular filtration rate > NRG Serum or plasma glucose measurement (mass/volume) 114 mg/dL 70-105 Serum or plasma calcium measurement (mass/volume) 8.7 mg/dL 8.5-10.1 Serum or plasma total bilirubin measurement (mass/volume) 0.2 mg/dL 0.1-1.0 Serum or plasma alkaline phosphatase measurement (enzymatic activity/volume) 68 U/L 40-136 Serum or plasma aspartate aminotransferase measurement (enzymatic activity/ volume) 15 U/L 5-34 Serum or plasma alanine aminotransferase measurement (enzymatic activity/volume ) 11 U/L 0-55 Serum or plasma protein measurement (mass/volume) 7.5 g/dL 6.4-8.2 Serum or plasma albumin measurement (mass/volume) 4.3 g/dL 3.2-4.5 Complete urinalysis with reflex to culture - 02/01/16 21:12 Urine color determination YELLOW NRG Urine clarity determination SLIGHTLY CLOUDY NRG Urine pH measurement by test strip 6 5-9 Specific gravity of urine by test strip 1.015 1.016- 1.022 Urine protein assay by test strip, semi-quantitative 1+ NEGATIVE Urine glucose detection by automated test strip NEGATIVE NEGATIVE Erythrocytes detection in urine sediment by light microscopy NEGATIVE NEGATIVE Urine ketones detection by automated test strip 2+ NEGATIVE Urine nitrite detection by test strip NEGATIVE NEGATIVE Urine total bilirubin detection by test strip NEGATIVE NEGATIVE Urine urobilinogen measurement by automated test strip (mass/volume) 1 mg/dL NORMAL Urine leukocyte esterase detection by dipstick 1+ NEGATIVE Automated urine sediment erythrocyte count by microscopy (number/high power field) RARE NRG Automated urine sediment leukocyte count by microscopy (number/high power field ) [HPF] NRG Bacteria detection in urine sediment by light microscopy MODERATE NRG Squamous epithelial cells detection in urine sediment by light microscopy 10-25 NRG Crystals detection in urine sediment by light microscopy NONE NRG Casts detection in urine sediment by light microscopy NONE NRG Mucus detection in urine sediment by light microscopy MODERATE NRG Complete urinalysis with reflex to culture NO NRG Complete blood count (CBC) with automated white blood cell (WBC) differential - 10/24/16 18:41 Blood leukocytes automated count (number/volume) 5.6 10*3/uL 4.3-11.0 Blood erythrocytes automated count (number/volume) 3.64 10*6/uL 4.35-5.85 Venous blood hemoglobin measurement (mass/volume) 12.4 g/dL 11.5-16.0 Blood hematocrit (volume fraction) 38 % 35-52 Automated erythrocyte mean corpuscular volume 104 [foz_us] 80-99 Automated erythrocyte mean corpuscular hemoglobin (mass per erythrocyte) 34 pg 25-34 Automated erythrocyte mean corpuscular hemoglobin concentration measurement ( mass/volume) 33 g/dL 32-36 Automated erythrocyte distribution width ratio 13.7 % 10.0-14.5 Automated blood platelet count (count/volume) 209 10*3/uL 130-400 Automated blood platelet mean volume measurement 9.7 [foz_us] 7.4-10.4 Automated blood neutrophils/100 leukocytes 51 % 42-75 Automated blood lymphocytes/100 leukocytes 40 % 12-44 Blood monocytes/100 leukocytes 6 % 0-12 Automated blood eosinophils/100 leukocytes 3 % 0-10 Automated blood basophils/100 leukocytes 0 % 0-10 Blood neutrophils automated count (number/volume) 2.9 10*3 1.8-7.8 Blood lymphocytes automated count (number/volume) 2.3 10*3 1.0-4.0 Blood monocytes automated count (number/volume) 0.4 10*3 0.0-1.0 Automated eosinophil count 0.2 10*3/uL 0.0-0.3 Automated blood basophil count (count/volume) 0.0 10*3/uL 0.0-0.1 Comprehensive metabolic panel - 10/24/16 18:41 Serum or plasma sodium measurement (moles/volume) 138 mmol/L 135-145 Serum or plasma potassium measurement (moles/volume) 3.3 mmol/L 3.6-5.0 Serum or plasma chloride measurement (moles/volume) 103 mmol/L 98-107 Carbon dioxide 25 mmol/L 21-32 Serum or plasma anion gap determination (moles/volume) 10 mmol/L 5-14 Serum or plasma urea nitrogen measurement (mass/volume) 14 mg/dL 7-18 Serum or plasma creatinine measurement (mass/volume) 1.00 mg/dL 0.60-1.30 Serum or plasma urea nitrogen/creatinine mass ratio 14 NRG Serum or plasma creatinine measurement with calculation of estimated glomerular filtration rate > NRG Serum or plasma glucose measurement (mass/volume) 90 mg/dL 70-105 Serum or plasma calcium measurement (mass/volume) 8.7 mg/dL 8.5-10.1 Serum or plasma total bilirubin measurement (mass/volume) 0.2 mg/dL 0.1-1.0 Serum or plasma alkaline phosphatase measurement (enzymatic activity/volume) 56 U/L 40-136 Serum or plasma aspartate aminotransferase measurement (enzymatic activity/ volume) 22 U/L 5-34 Serum or plasma alanine aminotransferase measurement (enzymatic activity/volume ) 19 U/L 0-55 Serum or plasma protein measurement (mass/volume) 7.1 g/dL 6.4-8.2 Serum or plasma albumin measurement (mass/volume) 3.9 g/dL 3.2-4.5 Serum or plasma lithium measurement (moles/volume) - 10/24/16 18:41 BNP level 34.1 pg/mL <100.0 Complete urinalysis with reflex to culture - 11/24/16 21:53 Urine color determination YELLOW NRG Urine clarity determination CLEAR NRG Urine pH measurement by test strip 5 5-9 Specific gravity of urine by test strip 1.010 1.016- 1.022 Urine protein assay by test strip, semi-quantitative NEGATIVE NEGATIVE Urine glucose detection by automated test strip NEGATIVE NEGATIVE Erythrocytes detection in urine sediment by light microscopy NEGATIVE NEGATIVE Urine ketones detection by automated test strip NEGATIVE NEGATIVE Urine nitrite detection by test strip NEGATIVE NEGATIVE Urine total bilirubin detection by test strip NEGATIVE NEGATIVE Urine urobilinogen measurement by automated test strip (mass/volume) NORMAL NORMAL Urine leukocyte esterase detection by dipstick NEGATIVE NEGATIVE Automated urine sediment erythrocyte count by microscopy (number/high power field) NONE NRG Automated urine sediment leukocyte count by microscopy (number/high power field ) NONE NRG Bacteria detection in urine sediment by light microscopy RARE NRG Squamous epithelial cells detection in urine sediment by light microscopy 5-10 NRG Crystals detection in urine sediment by light microscopy NONE NRG Casts detection in urine sediment by light microscopy NONE NRG Mucus detection in urine sediment by light microscopy NEGATIVE NRG Complete urinalysis with reflex to culture NO NRG Urine drug screening test - 11/24/16 21:53 Urine phencyclidine detection by screening method NEGATIVE NEGATIVE Urine benzodiazepines detection by screening method POSITIVE NEGATIVE Urine cocaine detection NEGATIVE NEGATIVE Urine amphetamines detection by screening method NEGATIVE NEGATIVE Urine methamphetamine detection by screening method NEGATIVE NEGATIVE Urine cannabinoids detection by screening method NEGATIVE NEGATIVE Urine opiates detection by screening method NEGATIVE NEGATIVE Urine barbiturates detection NEGATIVE NEGATIVE Screening urine tricyclic antidepressants detection NEGATIVE NEGATIVE Urine methadone detection by screening method NEGATIVE NEGATIVE Urine oxycodone detection POSITIVE NEGATIVE Urine propoxyphene detection NEGATIVE NEGATIVE Complete blood count (CBC) with automated white blood cell (WBC) differential - 11/24/16 22:57 Blood leukocytes automated count (number/volume) 6.2 10*3/uL 4.3-11.0 Blood erythrocytes automated count (number/volume) 3.56 10*6/uL 4.35-5.85 Venous blood hemoglobin measurement (mass/volume) 12.2 g/dL 11.5-16.0 Blood hematocrit (volume fraction) 37 % 35-52 Automated erythrocyte mean corpuscular volume 103 [foz_us] 80-99 Automated erythrocyte mean corpuscular hemoglobin (mass per erythrocyte) 34 pg 25-34 Automated erythrocyte mean corpuscular hemoglobin concentration measurement ( mass/volume) 33 g/dL 32-36 Automated erythrocyte distribution width ratio 14.0 % 10.0-14.5 Automated blood platelet count (count/volume) 250 10*3/uL 130-400 Automated blood platelet mean volume measurement 9.4 [foz_us] 7.4-10.4 Automated blood neutrophils/100 leukocytes 54 % 42-75 Automated blood lymphocytes/100 leukocytes 34 % 12-44 Blood monocytes/100 leukocytes 8 % 0-12 Automated blood eosinophils/100 leukocytes 5 % 0-10 Automated blood basophils/100 leukocytes 0 % 0-10 Blood neutrophils automated count (number/volume) 3.3 10*3 1.8-7.8 Blood lymphocytes automated count (number/volume) 2.1 10*3 1.0-4.0 Blood monocytes automated count (number/volume) 0.5 10*3 0.0-1.0 Automated eosinophil count 0.3 10*3/uL 0.0-0.3 Automated blood basophil count (count/volume) 0.0 10*3/uL 0.0-0.1 Comprehensive metabolic panel - 11/24/16 22:57 Serum or plasma sodium measurement (moles/volume) 137 mmol/L 135-145 Serum or plasma potassium measurement (moles/volume) 3.0 mmol/L 3.6-5.0 Serum or plasma chloride measurement (moles/volume) 100 mmol/L 98-107 Carbon dioxide 27 mmol/L 21-32 Serum or plasma anion gap determination (moles/volume) 10 mmol/L 5-14 Serum or plasma urea nitrogen measurement (mass/volume) 14 mg/dL 7-18 Serum or plasma creatinine measurement (mass/volume) 0.93 mg/dL 0.60-1.30 Serum or plasma urea nitrogen/creatinine mass ratio 15 NRG Serum or plasma creatinine measurement with calculation of estimated glomerular filtration rate > NRG Serum or plasma glucose measurement (mass/volume) 112 mg/dL 70-105 Serum or plasma calcium measurement (mass/volume) 8.6 mg/dL 8.5-10.1 Serum or plasma total bilirubin measurement (mass/volume) 0.1 mg/dL 0.1-1.0 Serum or plasma alkaline phosphatase measurement (enzymatic activity/volume) 45 U/L 40-136 Serum or plasma aspartate aminotransferase measurement (enzymatic activity/ volume) 15 U/L 5-34 Serum or plasma alanine aminotransferase measurement (enzymatic activity/volume ) 11 U/L 0-55 Serum or plasma protein measurement (mass/volume) 7.5 g/dL 6.4-8.2 Serum or plasma albumin measurement (mass/volume) 4.0 g/dL 3.2-4.5 Magnesium - 11/24/16 22:57 Magnesium 2.0 mg/dL 1.8-2.4 Serum or plasma lithium measurement (moles/volume) - 11/24/16 22:57 BNP level 28.5 pg/mL <100.0 Serum or plasma thyrotropin measurement by detection limit <=0.05 miu/l (units/ volume) - 11/24/16 22:57 Serum or plasma thyrotropin measurement by detection limit <=0.05 miu/l (units/ volume) 1.76 u[iU]/mL 0.35-4.94 Serum or plasma ethanol measurement (mass/volume) - 11/24/16 22:57 Serum or plasma ethanol measurement (mass/volume) < mg/dL <10 Encounters ACCT No. Visit Date/Time Discharge Status Pt. Type Provider Facility Loc./Unit Complaint [id number] 10/23/2012 14:48:00 10/23/2012 23:59:59 CLS Outpatient NATHANIEL GRACE MD [id number] 10/14/2012 14:50:00 Document Registration [id number] 09/03/2012 09:20:00 Document Registration [id number] 11/24/2016 20:24:00 11/25/2016 00:08:00 DIS Emergency PILI BERTRAND DO [facility] ER SWELLING OF BOTH FEET [id number] 10/24/2016 17:06:00 10/24/2016 20:01:00 DIS Emergency EDILBERTO CRUM MD [facility] ER CHEST CONGESTION [id number] 10/02/2016 13:30:00 10/02/2016 23:59:59 CLS Preadmit ALVARADO KINSEY DO [facility] RAD BREAST CA SCREENING Z12.31 [id number] 09/26/2016 21:40:00 09/26/2016 22:27:00 DIS Emergency JOSEPH FERNANDES APRN [facility] ER TROUBLE BREATHING [id number] 08/09/2016 12:50:00 08/09/2016 23:59:59 CLS Outpatient AMELIE ARZOLAALVARADO [facility] LAB R60.0,E55.9,F41.1 [id number] 02/01/2016 19:33:00 02/01/2016 22:18:00 DIS Emergency ANDREINA ROSS [facility] ER SOA;CHEST PAIN [id number] 12/23/2015 00:27:00 12/23/2015 01:46:00 DIS Emergency ROB GONZALES MD [facility] ER CAN'T URINATE [id number] 09/04/2015 02:38:00 09/04/2015 03:05:00 DIS Emergency PILI BERTRAND DO [facility] ER SWELLING IN LEGS [id number] 08/13/2015 15:24:00 08/13/2015 17:20:00 DIS Emergency JOSEPH FERNANDES APRN [facility] ER POSS UTI [id number] 05/01/2015 21:40:00 05/01/2015 23:59:59 CLS Emergency MILLY CHAVEZ MD [facility] ER LOWER ABD PAIN L SIDE [id number] 12/28/2014 14:02:00 12/28/2014 23:59:59 CLS Outpatient CHOLO LALA MD [facility] RAD SI JOINT PAIN [id number] 11/16/2014 11:27:00 11/16/2014 23:59:59 CLS Outpatient COURTNEY MURRELL [facility] QUICK [id number] 10/16/2013 04:31:00 10/16/2013 06:15:00 DIS Emergency PILI BERTRAND DO [facility] ER LOW BACK PROBLEMS-LOCKED UP [id number] 12/28/2014 14:01:00 Document Registration [id number] 05/07/2012 09:56:00 Document Registration [id number] 08/02/2011 00:26:00 Document Registration [id number] 05/18/2011 01:05:00 Document Registration [id number] 05/17/2011 19:35:00 Document Registration [id number] 04/17/2011 08:11:00 Document Registration [id number] 04/16/2011 09:44:00 Document Registration [id number] 11/03/2010 01:11:00 Document Registration [id number] 10/14/2010 02:53:00 Document Registration [id number] 06/27/2010 22:50:00 Document Registration [id number] 06/10/2010 09:03:00 Document Registration [id number] 04/10/2010 14:55:00 Document Registration [id number] 04/09/2010 21:26:00 Document Registration [id number] 04/04/2010 08:25:00 Document Registration [id number] 03/29/2010 13:25:00 Document Registration [id number] 01/22/2010 20:14:00 Document Registration [id number] 09/08/2009 22:08:00 Document Registration
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
--- NOTE | 2017-03-10 22:09 | Diagnostic Imaging Report ---
INDICATION: Patient states fell in bathtub one week ago. Posterior lower rib pain. FINDINGS: Frontal view of the chest and three additional views of the right ribs were obtained. The lungs are clear. The heart, mediastinum and pulmonary vascularity appear normal. No pneumothorax or pleural effusion is present. There is a nondisplaced right lateral seventh rib fracture. IMPRESSION: There is a nondisplaced right seventh rib fracture. The lungs appear normal. Dictated by: Dictated on workstation # [id number]
[2017-03-10] MEDS ORDERED: RX-OXYCODONE/APAP 5-325 MG #4 TAB PK PO PRN (22:15)
[2017-03-10] MEDS ORDERED: KETOROLAC 60 MG/2 ML VIAL IM ONE (22:15)
[2017-03-10 22:35] VITALS: BP 148/100
== END 2017-03-10 22:35 | disposition home or self-care (01) ==
LOC: EDUNIT# 20:45 → ER 20:47
DX: S22.31XA Fracture of one rib, right side, initial encounter for closed fracture (principal); G40.909 Epilepsy, unspecified, not intractable, without status epilepticus; F41.9 Anxiety disorder, unspecified; Z87.891 Personal history of nicotine dependence; Z90.49 Acquired absence of other specified parts of digestive tract; Z87.440 Personal history of urinary (tract) infections; Z90.710 Acquired absence of both cervix and uterus; Z87.59 Personal history of other complications of pregnancy, childbirth and the puerperium; W01.10XA Fall on same level from slipping, tripping and stumbling with subsequent striking against unspecified object, initial encounter; Y92.002 Bathroom of unspecified non-institutional (private) residence as the place of occurrence of the external cause
CPT/HCPCS: 71101; 96372; 99284

== ENCOUNTER → 2017-04-26 | Outpatient (CLI) | payer MEDICARE, MEDICAID ==
--- NOTE | 2017-04-26 09:28 | Diagnostic Imaging Report ---
PROCEDURE: CT lumbar spine without contrast. TECHNIQUE: Multiple contiguous axial images were obtained through the lumbar spine without the use of intravenous contrast. Sagittal and coronal reformations were then performed. INDICATION: Low back pain and lumbar stenosis. COMPARISON: No prior studies are available for comparison. FINDINGS: Curvature and alignment of the lumbar spine is normal. The vertebral body heights are maintained. There is significant degenerative disc disease at the L5-S1 level with complete loss of the disc space. There is sclerosis of the endplates and marginal osteophyte formation as well as vacuum disc phenomena. The bony canal appears to be widely patent. There is a suggestion of bilateral neural foraminal stenosis at L5-S1 level due to disc/osteophyte complex. No other abnormalities are seen. IMPRESSION: L5-S1 degenerative disc disease with bilateral neural foraminal stenosis. No bony central canal stenosis is identified. No acute bony abnormality is detected. Dictated by: Dictated on workstation # [id number]
== END ==
LOC: RAD 08:28
PROVIDERS: ATTEND Orthopaedic Surgery Orthopaedic Surgery of the Spine
DX: M48.07 Spinal stenosis, lumbosacral region (principal); M51.37 Other intervertebral disc degeneration, lumbosacral region
CPT/HCPCS: 72131

== ENCOUNTER 2018-05-21 00:32 | Emergency (ER) | payer MEDICARE ==
[~2018-05-21] VITALS: Ht 170.2 cm; Wt 68.0 kg
[~2018-05-21 00:32] MED LIST changes: -GABA600T2 PO; +GBPN600T PO
[2018-05-21 00:46] LABS: BASOPHILS % (AUTO) 0 % (0-10); EOSINOPHILS # (AUTO) 0.2 10^3/uL (0.0-0.3); EOSINOPHILS % (AUTO) 4 % (0-10); HEMATOCRIT 35 % (35-52); HEMOGLOBIN 11.6 G/DL (11.5-16.0); LYMPHOCYTES # (AUTO) 2.9 X 10^3 (1.0-4.0); LYMPHOCYTES % (AUTO) 47 % (12-44); MEAN CORPUSCULAR HEMOGLOBIN 33 PG (25-34); MEAN CORPUSCULAR HGB CONC 33 G/DL (32-36); MEAN CORPUSCULAR VOLUME 100 FL (80-99); MEAN PLATELET VOLUME 8.7 FL (7.4-10.4); MONOCYTES # (AUTO) 0.3 X 10^3 (0.0-1.0); MONOCYTES % (AUTO) 5 % (0-12); NEUTROPHILS # (AUTO) 2.7 X 10^3 (1.8-7.8); NEUTROPHILS % (AUTO) 44 % (42-75); PLATELET COUNT 275 10^3/uL (130-400); RED CELL DISTRIBUTION WIDTH 14.2 % (10.0-14.5); WHITE BLOOD COUNT 6.1 10^3/uL (4.3-11.0)
--- NOTE | 2018-05-21 01:00 | NUR ---
CALLED TO PT ROOM BY . UPON ENTERING ROOM PT NOTED TO BE HAVING SEIZURE ACTIVITY. PT ROLLED TO LT SIDE. NASOPHARYNGEAL AIRWAY PLACED TO LT NARE. 2L O2 VIA NC APPLIED. SEIZURE ACTIVITY LASTED APPROX X2 MINUTES.
[2018-05-21] MEDS ORDERED: LORazepam INJ 2 MG/ML (ATIVAN) VIAL ONE (01:03)
[2018-05-21] MEDS: LEVETIRACETAM INJECTION 1,000 MG in NS (IVPB) 100 ML IV SCH ×2 (01:10→01:21)
[2018-05-21 01:13] LABS: INR 0.9 (0.8-1.4); PROTHROMBIN TIME PATIENT 12.3 SEC (12.2-14.7)
[2018-05-21 01:16] LABS: ALANINE AMINOTRANSFERASE 19 U/L (0-55); ALKALINE PHOSPHATASE 48 U/L (40-136); BILIRUBIN,TOTAL 0.1 MG/DL (0.1-1.0); BUN/CREATININE RATIO 24; CALCIUM 8.7 MG/DL (8.5-10.1); CARBON DIOXIDE 18 MMOL/L (21-32); CHLORIDE 111 MMOL/L (98-107); CREATINE KINASE 60 U/L (29-168); CREATININE SERUM 0.82 MG/DL (0.60-1.30); GFR ESTIMATED > 60; GLUCOSE 109 MG/DL (70-105); MAGNESIUM 2.2 MG/DL (1.8-2.4); POTASSIUM 3.3 MMOL/L (3.6-5.0); SODIUM 137 MMOL/L (135-145); TOTAL PROTEIN 6.9 GM/DL (6.4-8.2)
[2018-05-21 01:21] LABS: BILIRUBIN,URINE NEGATIVE (NEGATIVE); CLARITY,URINE CLEAR; COLOR,URINE YELLOW; GLUCOSE, URINE (UA) NEGATIVE (NEGATIVE); KETONES,URINE NEGATIVE (NEGATIVE); LEUKOCYTE ESTERASE ,URINE NEGATIVE (NEGATIVE); NITRITE,URINE NEGATIVE (NEGATIVE); PH,URINE 6 (5-9); PROTEIN,URINE 1+ (NEGATIVE); UROBILINOGEN,URINE NORMAL (NORMAL)
[2018-05-21 01:22] LABS: ACETAMINOPHEN < 10 UG/ML (10-30)
[2018-05-21] MEDS ORDERED: LORazepam INJ 2 MG/ML (ATIVAN) VIAL IVP ONE (01:30)
[2018-05-21] MEDS ORDERED: LEVETIRACETAM INJECTION 1,000 MG in NS (IVPB) 100 ML IV SCH (01:30)
[2018-05-21 01:35] LABS: AMPHETAMINE SCREEN, URINE NEGATIVE (NEGATIVE); BACTERIA,URINE NEGATIVE /HPF; BARBITURATE SCREEN URINE NEGATIVE (NEGATIVE); BENZODIAZEPINES SCREEN URINE POSITIVE (NEGATIVE); CANNABINOID SCREEN, URINE POSITIVE (NEGATIVE); COCAINE SCREEN URINE NEGATIVE (NEGATIVE); METHADONE STAT NEGATIVE (NEGATIVE); METHAMPHETAMINE SCREEN URINE S NEGATIVE (NEGATIVE); OPIATE SCREEN URINE NEGATIVE (NEGATIVE); OXYCODONE STAT POSITIVE (NEGATIVE); PROPOXYPHENE STAT NEGATIVE (NEGATIVE); SQUAMOUS EPITHELIAL CELL,UR RARE /HPF; TRICYCLIC ANTIDEPRESSANTS SCRE NEGATIVE (NEGATIVE)
[2018-05-21 01:36] LABS: CREATINE KINASE MB 0.7 NG/ML (<6.6); TSH (THYROID ANALYZER) 6.24 UIU/ML (0.35-4.94)
[2018-05-21] MEDS ORDERED: 1/2 NS W/KCL 20 MEQ/L 1,000 ML IV SCH (02:00)
[2018-05-21] MEDS ORDERED: 1/2 NS W/KCL 20 MEQ/L 0 ML IV ONE (02:10)
[2018-05-21] MEDS ORDERED: 1/2 NS W/KCL 20 MEQ/L 1,000 ML IV ONE (02:12)
[2018-05-21 02:15] LABS: FREE T4 (FREE THYROXINE) 1.08 NG/DL (0.70-1.48)
[2018-05-21] MEDS ORDERED: ACETAMINOPHEN 500 MG TAB (TYLENOL) ONE (02:28)
[2018-05-21] MEDS ORDERED: ACETAMINOPHEN 500 MG TAB (TYLENOL) PO ONE (02:30)
--- NOTE | 2018-05-21 03:20 | NUR ---
PT REQUEST CATHETER DC'D. PT STATES, "ITS BOTHERING ME." PROVIDER MADE AWARE. 16FR WHALEY CATHER DC'D.
--- NOTE | 2018-05-21 03:34 | NUR ---
PT , OMAR, TO NURSES DESK TO REPORT PT IS EXPERIENCING HEADACHE.
[2018-05-21] MEDS ORDERED: KETOROLAC 30 MG/ML VIAL ONE (03:36)
[2018-05-21] MEDS ORDERED: KETOROLAC 30 MG/ML VIAL IVP ONE (03:45)
--- NOTE | 2018-05-21 03:51 | NUR ---
REPORT GIVEN TO AB HERNANDEZ FROM [facility]. UPON ARRIVAL PT TO ROOM #[id number].
--- NOTE | 2018-05-21 04:40 | NUR ---
AB HERNANDEZ RN FROM [facility] NOTIFIED OF UNAVAILABILITY OF EMS TO TRANSPORT PT UNTIL SHIFT CHANGE. Addendum: 05/21/18 at 0449 by SAMMY PT AND SPOUSE NOTIFIED BY DR. DAVISON
[2018-05-21] MEDS ORDERED: LACTATED RINGERS 1,000 ML IV ONE (04:56)
--- NOTE | 2018-05-21 06:00 | NUR ---
PT RESTING ON ED CART. RESPIRATIONS EVEN AND NON LABORED. NO DISTRESS NOTED.
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
--- NOTE | 2018-05-21 07:00 | NUR ---
REPORT GIVEN TO DAYRON PFEIFFER TO ASSUME CARE OF PT @ THIS TIME.
--- NOTE | 2018-05-21 07:00 | NUR ---
TO ROOM EYES CLOSED MONITOR SR. SAO2 99%
--- NOTE | 2018-05-21 07:00 | NUR ---
CONTACTED EMS MEDICAL LABORATORY MANAGER REGARDING REQUEST TRANSFER TO [facility].
--- NOTE | 2018-05-21 07:35 | Diagnostic Imaging Report ---
INDICATION: Seizure. Comparison with 03/10/2017. FINDINGS: Portable chest. The lungs are well-aerated and clear. No pneumothorax or pleural effusion. Heart is not enlarged. No evidence of pulmonary edema. No acute bony abnormalities. There does appear to be old deformity of the right seventh rib. IMPRESSION: Deformity right seventh rib which is likely old in nature. No evidence of pneumothorax. Dictated by: Dictated on workstation # [id number]
--- NOTE | 2018-05-21 07:53 | NUR ---
CALLED EMS DISPATCH CALLED WAS NOT AWARE OF TRANSFER WILL GET WITH THE SHIFT CAPTION
--- NOTE | 2018-05-21 07:57 | Diagnostic Imaging Report ---
PROCEDURE: CT head without contrast. TECHNIQUE: Multiple contiguous axial images were obtained through the brain without the use of intravenous contrast. Auto Exposure Controls were utilized during the CT exam to meet ALARA standards for radiation dose reduction. INDICATION: Seizure. Altered mental status. FINDINGS: Noncontrasted images show no evidence of intracranial hemorrhage. Ventricles and cortical gyral pattern are normal. There is no mass effect. Pituitary is not enlarged. Basal cisterns are clear. CP angles are normal. Mastoid air cells and paranasal sinuses are clear where visualized. No calvarial fractures. IMPRESSION: Negative CT head without contrast. Dictated by: Dictated on workstation # [id number]
--- NOTE | 2018-05-21 08:00 | NUR ---
[facility] WITH EMS CALLED BACK IS WORKING ON TRANSFER.
--- NOTE | 2018-05-21 08:18 | NUR ---
CALLED [facility] AND GAVE UPDATE TO [facility] GAVE UPDATE TALKED WITH FELICIA.
--- NOTE | 2018-05-21 08:20 | NUR ---
BACK GIVEN UPDATE
--- NOTE | 2018-05-21 08:37 | NUR ---
EMS [facility] CALLED EMS WILL BE HEADADED THIS WAY
[2018-05-21 09:05] VITALS: BP 112/67
--- NOTE | 2018-05-21 09:15 | NUR ---
FELICIA AT [facility] CALLED AND INFORMED HER THAT SHE IS LEAVING MY EMS.
== END 2018-05-21 09:05 | disposition short-term general hospital (02) ==
LOC: EDUNIT# 00:32 → ER 00:35
DX: G40.909 Epilepsy, unspecified, not intractable, without status epilepticus (principal); F19.10 Other psychoactive substance abuse, uncomplicated; E87.6 Hypokalemia; F41.9 Anxiety disorder, unspecified; F17.210 Nicotine dependence, cigarettes, uncomplicated; Z98.890 Other specified postprocedural states; Z90.49 Acquired absence of other specified parts of digestive tract; Z87.448 Personal history of other diseases of urinary system; Z90.710 Acquired absence of both cervix and uterus; Z88.0 Allergy status to penicillin; Z79.51 Long term (current) use of inhaled steroids
CPT/HCPCS: 36415; 51702; 70450; 71045; 80053; 80306; 80320; 80329; 81000; 82550; 82553; 83735; 84439; 84443; 84703; 85025; 85610; 85730; 93005; 93041; 96361; 96365; 96375

== ENCOUNTER → 2018-05-28 | Outpatient (CLI) | payer MEDICAID, MEDICARE ==
--- NOTE | 2018-05-28 14:38 | Diagnostic Imaging Report ---
PROCEDURE: US Non-ob pelvis comp/trans. TECHNIQUE: Multiple realtime grayscale images were obtained of the pelvis in various projections endovaginally. Transabdominal imaging was also performed. INDICATION: Pelvic pain for two months. Patient had prior hysterectomy five years ago. FINDINGS: The uterus is surgically absent. The right ovary measures 3.9 x 2.6 x 2.1 cm and the left ovary measures 4.5 x 4.3 x 3.4 cm. There is a complex cystic mass involving the left ovary measuring 3.1 x 3.2 cm. There is blood flow to the ovaries. No free fluid is seen. IMPRESSION: Complex cystic mass involving the left ovary, perhaps a hemorrhagic cyst. Followup to confirm clearing is recommended. Dictated by: Dictated on workstation # [id number]
--- NOTE | 2018-05-28 18:54 | Diagnostic Imaging Report ---
INDICATION: Pain and lump in the medial aspect of the right breast near the chest wall. COMPARISON: No prior studies are available for comparison. TECHNIQUE: 2D and 3D bilateral diagnostic mammography was performed with computer-aided detection (CAD) system. FINDINGS: Both breasts are heterogeneously dense, limiting the sensitivity of mammography. A BB marker was placed in the area of pain and palpable abnormality along the chest wall of the medial right breast. No underlying abnormality is seen. There is a circumscribed nodular density in the retroareolar left breast medial and slightly inferior. This may represent a cyst. No suspicious calcifications are seen. Axillae are unremarkable. IMPRESSION: No abnormality in the right breast is identified. There is a nodular density in the lower-inner left breast, which has fairly benign features. Further evaluation with ultrasound of the area of pain and palpable abnormality of the right breast as well as the lower-inner left breast, 3 cm from the nipple is recommended and will be performed today. ACR BI-RADS Category 0: Incomplete. (Needs additional imaging evaluation). Result letter will be mailed to the patient. Note: At least 10% of breast cancer is not imaged by mammography. Dictated by: Dictated on workstation # [id number]
--- NOTE | 2018-05-28 19:12 | Diagnostic Imaging Report ---
INDICATION: Palpable lump in the right breast as well as left breast density. Patient presents for further evaluation. COMPARISON: Correlation is made with a diagnostic mammogram earlier the same day. FINDINGS: RIGHT BREAST: Evaluation of the area of palpable abnormality on the right was performed. This is near the chest wall just to the right of midline. No abnormality is identified. No solid or cystic mass is identified. LEFT BREAST: Several cysts are identified in the lower-inner left breast at approximately 7 o'clock as well as the 8 o'clock and 9 o'clock locations. These all appear to be less than 1 cm in size. One of these likely accounts for the mammographic density located at approximately 7 o'clock location, 3 cm from the nipple. No suspicious abnormality is seen. IMPRESSION: 1. No sonographic abnormality is identified at the area of palpable abnormality near the chest wall on the right. Clinical followup is recommended. 2. Multiple left breast cysts, likely accounting for the mammographic densities. ACR BI-RADS Category 2: Benign findings. Dictated by: Dictated on workstation # [id number]
== END ==
LOC: RAD 12:22
PROVIDERS: ATTEND Obstetrics & Gynecology
DX: N63.10 Unspecified lump in the right breast, unspecified quadrant (principal); N60.02 Solitary cyst of left breast; N83.8 Other noninflammatory disorders of ovary, fallopian tube and broad ligament; Z90.710 Acquired absence of both cervix and uterus
CPT/HCPCS: 76642; 76830; 76856; 77066

== ENCOUNTER → 2018-09-24 | Outpatient (CLI) | payer MEDICARE ==
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
== END ==
LOC: RAD FS 11:15
PROVIDERS: ATTEND Family Medicine
DX: M47.814 Spondylosis without myelopathy or radiculopathy, thoracic region (principal)
CPT/HCPCS: 72070

== ENCOUNTER → 2019-06-04 | Outpatient (CLI) | payer MEDICAID, MEDICARE ==
[~2019-06-04] MED LIST changes: -TRAM50TA2; +TRM50T
--- NOTE | 2019-06-04 11:09 | Diagnostic Imaging Report ---
PROCEDURE: MRI lumbar spine. TECHNIQUE: Multiplanar, multisequence MRI of the lumbar spine was performed without contrast. INDICATION: Increasing low back pain. Patient has had prior lumbar spine surgery. Comparison is made with prior MRI of the lumbar spine from 05/07/2012. FINDINGS: Curvature and alignment of the lumbar spine is normal. Since prior study patient has undergone lumbar spine surgery. There are postoperative changes of posterior instrumented fusion on the left side at L5-S1. There are also postoperative changes of anterior lumbar interbody fusion at L5-S1. Hardware does produce some moderate artifact. Vertebral body heights are maintained. No acute compression fracture or geographic marrow lesion is identified. There does appear to be an intervertebral device at L5-S1. Remaining disc spaces show normal height and signal intensity. The conus is unremarkable at the L1 level. T12-L1: The central canal and neural foramina are widely patent. L1-L2: Central canal and neural foramina are widely patent. L2-L3: Slight flattening of the ventral thecal sac is noted, but central canal remains widely patent. There is some ligamentous thickening present. Neural foramina appear patent. L3-L4: There is some ligamentous thickening present. Central canal is widely patent. There may be very mild neural foraminal narrowing due to annular bulging particularly on the right. L4-L5: There is some ligamentous thickening present. Central canal is patent. Mild annular bulging does produce some mild to moderate neural foraminal narrowing bilaterally as well as very slight lateral recess narrowing. L5-S1: Central canal is widely patent. Neural foramina appear patent. Paraspinous tissues are unremarkable. IMPRESSION: 1. Postop changes of anterior and posterior lumbar fusion L5-S1. 2. Mild degenerative changes with mild neural foraminal and lateral recess narrowing, described level by level above. No central canal stenosis is detected. Dictated by: Dictated on workstation # [id number]
== END ==
LOC: RAD 09:56
PROVIDERS: ATTEND Orthopaedic Surgery Orthopaedic Surgery of the Spine
DX: M47.816 Spondylosis without myelopathy or radiculopathy, lumbar region (principal); Z98.1 Arthrodesis status
CPT/HCPCS: 72148